=== PATIENT | male | born 1940 | race Caucasian/White ===

== ENCOUNTER 2019-02-15 16:20 | Emergency (ER) | payer MEDICARE ==
--- OUTSIDE RECORDS SUMMARY | 2019-02-15 17:35 | XMS REPORT | Continuity of Care Document ---
:1940 External Reference #:[id number] Author Name Amilcar Cruz MD Address [address] [place] [address] Care Team Providers Name Role Phone Marques Kendrick M.D. 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 Marc Pozo MD Primary Care Physician Unavailable Payers Date Identification Numbers Payment Provider Subscriber Policy Number: [id number] Medicare Remberto Miranda PayID: [id number] [address] [place] [address] Policy Number: [id number] Aar Supplemental Plan Remberto Miranda PayID: [id number] [address] [place] [address] Expires: 2018 Policy Number: [id number] Medicare Remberto Miranda PayID: [id number] [address] [place] [id number] Problems Active Problems Provider Date History of malignant neoplasm of kidney Amilcar Cruz MD Onset: 2018 Bladder muscle dysfunction - overactive Amilcar Cruz MD Onset: 2016 History of malignant neoplasm of prostate Amilcar Cruz MD Onset: 01/27 Increased frequency of urination Amilcar Cruz MD Onset: 07/26/2012 Impotence of organic origin Amilacr Cruz MD Onset: 07/26/2012 Malignant tumor of kidney Bishop Valles RPA Onset: 02/02/2012 Malignant tumor of prostate Bishop Valles RPA Onset: 02/02/2012 Family History Date Family Member(s) Observation Comments Father Prostate Cancer Social History Type Date Description Comments Sex Unknown Marital Status Patient is single Occupation Patient is retired Tobacco Use Reviewed: 01/24/19 Never Smoked Cigarettes Smoking Status Reviewed: 01/24/19 Never Smoked Cigarettes ETOH Use Patient denies alcohol use Allergies, Adverse Reactions, Alerts Description No Known Drug Allergies Medications Active Medications SIG Qnty Indications Ordering Date Provider Vesicare Take One Tablet 90tabs Torsten Lockwood, 10/16/2018 10mg Tablets By Mouth Every PA Day Meloxicam Unknown 15mg Tablets Chlorthalidone Marc Pozo MD 25mg Tablets Montelukast Sodium Henny De Jesus MD 10mg Tablets Bupropion Hydrochloride Henny De Jesus MD ER (XL) 300mg Tablets ER 24HR Vitamin D 1 by mouth Unknown 1000Unit Tablets every day Citalopram Hydrobromide Unknown 20mg Tablets Multi Vitamin prn Unknown Tablets Fluticasone Propionate Unknown 50mcg/Act Suspension Prilosec 1 PO qd 90caps Unknown 20mg Capsules Polyethylene Glycol Unknown Losartan Potassium Unknown 150mg Levothyroxine Sodium Unknown 25mcg Tablets Levocetirizine Unknown Dihydrochloride 5mg Tablets Aspirin 1 by mouth Unknown 81mg Tablets DR every day Rosuvastatin Calcium Unknown 5mg Tablets Mometasone Furoate Unknown 50mcg/Act Suspension Ranitidine HCL Unknown 150mg Capsules History Medications Vesicare 1 by mouth every 90tabs Amilcar Orta 07/05/2018 - 5mg Tablets day MD Anthony 10/16/2018 Vesicare Take One Tablet By 90tailan Orta 07/20/2015 - 10mg Tablets Mouth Every Day MD Anthony 07/05/2018 Levaquin 1 Tab Morning Of 2tabs Amilcar Orta 06/21/2007 - 500mg Tablets Procedure And 1 Tab MD Anthony 07/23/2007 Day After Procedure Cialis 1 Tab PO prn 1 Hour 10tabs Amilcar Orta 07/21/2006 - 20mg Tablets Prior To MD Anthony 01/24/2019 [place] Prevacid Doe Orta 06/14/2005 - 30mg/Packet Lyle Montanez 01/02/2006 Granules Aspirin Doe Orta 06/14/2005 - 300mg Suppositor Lyle Montanez 07/27/2016 Lexapro Doe Orta 06/14/2005 - 5mg Tablets Lyle Montanez 06/21/2007 Desipramine Doe Orta 06/14/2005 - 50mg Tablets Lyle Montanez 01/02/2006 Lipitor 1 po hs 0tabs Doe Orta 06/14/2005 - 20mg Tablets Lyle Montanez 01/02/2006 HCTZ 1 PO qd 30tabs Doe Orta 06/14/2005 - 25mg Tablets Lyle Montanez 12/09/2014 Avapro qd Doe Orta 06/14/2005 - 150mg Tablets Lyle Montanez 08/29/2013 Xanax one tab po tid january Doe Orta 06/14/2005 - 0.5mg Tablets also take 2 tabs at Lyle Montanez 01/02/2006 night if needed Oxybutynin one tab po in am as 60tabs Doe Orta 02/08/2005 - 5mg Tablets needed...one pill Lyle Montanez 07/23/2007 at noon as needed...two pills at night Augmentin 1 po bid 60tabs Doe Orta 01/14/2005 - 875mg Tablets Lyle Montanez 06/14/2005 Lortab one or two tabs po 30tabs Doe Orta 12/15/2004 - 7.5mg;500 mg q4-6 hours prn pain Lyle Montanez 06/21/2007 Tablets Ditropan XL 1 po qd 30tabs Doe Orta 12/15/2004 - 10mg Tablets Lyle Montanez 06/14/2005 Cialis 1 tab po prn 1 hour 10tabs Amilcar Orta 06/11/2004 - 10mg Tablets prior to MD Anthony 06/21/2007 intercourse Flonase Unknown - 50mcg/[place] 01/27/2016 Suspension Ultracet Unknown - Tablets 08/29/2013 Tramadol HCL Unknown - 50mg Tablets 07/27/2016 Naprosyn Unknown - 07/26/2017 Crestor Unknown - 07/27/2016 Miralax Unknown - 08/29/2013 Oxybutynin Unknown - 01/31/2013 Vesicare Unknown - 5mg 07/19/2015 Wellbutrin XL 1 po qd 90Tabs Unknown - 300mg 07/26/2017 Tablets ER 24HR Chlorthalidone Unknown - 25mg 07/26/2017 Tablets Nasacort Allergy 24HR Unknown - 01/25/2017 Amlodipine Besylate Unknown - 2.5mg 07/26/2017 Tablets Multivitamins 1 PO qd 30tabs Unknown - Tablets 01/25/2017 Senna-Gen Unknown - 01/31/2013 Tylenol W/ Codeine #3 1-2 Tabs PO Q4HR 30tabs Unknown - prn Pain 11/14/2008 300mg;30 mg Tablets Seroquel 1 PO qd Unknown - 50mg Tablets 11/14/2008 Lamictal 1 PO qid Unknown - 25mg Tablets 11/14/2008 Bupropion Sustained bid Unknown - Release 06/12/2009 150mg Tablets Depakote ER Unknown - 250mg Tablets 06/21/2007 Nifedipine Extended 60tabs Unknown - Release 06/21/2007 60mg Tablets Bisacodyl Unknown - 5mg Tablets 06/21/2007 Lovastatin qd Unknown - 20mg Tablets 12/30/2010 Mirtazapine Unknown - 15mg Tablets 06/21/2007 Naproxen Unknown - 250mg Tablets 06/21/2007 Vital Signs Date Vital Result Comment 01/24/2019 11:42am Height 63 inches 5'3" Weight 140.00 lb Weight 63.504 kg BMI (Body Mass Index) 24.8 kg/m2 BP Systolic 140 mmHg BP Diastolic 82 mmHg Heart Rate 73 /min 07/27/2017 12:35pm Height 64 inches 5'4" Weight 144.00 lb Weight 65.318 kg BMI (Body Mass Index) 24.7 kg/m2 BP Systolic 149 mmHg BP Diastolic 80 mmHg Heart Rate 68 /min 01/26/2017 11:30am Height 64 inches 5'4" Weight 140.00 lb Weight 63.504 kg BMI (Body Mass Index) 24.0 kg/m2 BP Systolic 132 mmHg BP Diastolic 84 mmHg Heart Rate 67 /min 07/28/2016 11:16am Height 64 inches 5'4" Weight 145.00 lb Weight 65.772 kg BMI (Body Mass Index) 24.9 kg/m2 BP Systolic 129 mmHg BP Diastolic 74 mmHg Heart Rate 79 /min 01/28/2016 10:34am Height 64 inches 5'4" Weight 149.00 lb Weight 67.586 kg BMI (Body Mass Index) 25.6 kg/m2 BP Systolic 146 mmHg BP Diastolic 81 mmHg Heart Rate 62 /min 12/09/2014 2:17pm Height 64.5 inches 5'4.50" Weight 143.00 lb Weight 64.865 kg BMI (Body Mass Index) 24.2 kg/m2 BP Systolic 125 mmHg BP Diastolic 72 mmHg Heart Rate 63 /min 11/21/2013 1:48pm Height 64.5 inches 5'4.50" Weight 341.69 lb Weight 155.000 kg BMI (Body Mass Index) 57.7 kg/m2 BP Systolic 138 mmHg BP Diastolic 56 mmHg Heart Rate 70 /min 01/31/2013 11:53am Height 64 inches 5'4" Weight 143.00 lb Weight 64.865 kg BMI (Body Mass Index) 24.5 kg/m2 BP Systolic 154 mmHg BP Diastolic 82 mmHg Heart Rate 64 /min 07/26/2012 12:03pm BP Systolic 130 mmHg BP Diastolic 88 mmHg Heart Rate 60 /min 02/02/2012 3:25pm Height 63.50 inches 5'3.50" Weight 140.00 lb Weight 63.504 kg BMI (Body Mass Index) 24.4 kg/m2 BP Systolic 134 mmHg BP Diastolic 76 mmHg Heart Rate 64 /min Results Test Date Facility Test Result H/L Range Note 230 Ua Routine 01/24/2019 [facility] Ua Glucose Negative REF TO DR ADDRESS ON ORDER FOR (315)- - Ua Protein Negative Ua Nitrite Negative Ua Leuko Negative Ua Blood Negative Ua Color Yellow Ua Ketones Negative Ua Clarity Clear Ua Specific [place] 1.010 1.003-1.030 Ua PH 7.0 5.0-7.5 Ua Bilirubin Negative Ua Urobilinogen 1.0 E.U./dL 0.0-1.0 Laboratory test 01/21/2019 [facility] Prostate 3.14 ng/mL < 4.0 1, [address] [place] [address] Antigen [phone] Laboratory test 08/20/2018 [facility] Prostate 3.14 ng/mL < 4.0 [address] [place] [address] Antigen [phone] Laboratory test 07/27/2017 [facility] Total Psa 2.56 ng/mL 0.00-4.[address] [place] [address] [phone] 230 Ua Routine 07/27/2017 [facility] Ua Glucose Negative REF TO DR ADDRESS ON ORDER FOR (315)- - Ua Protein Negative Ua Nitrite Negative Ua Leuko Negative Ua Blood Negative Ua Color Not Entered Ua Ketones Negative Ua Clarity Not Entered Ua Specific [place] 1.010 1.003-1.030 Ua PH 7.0 5.0-7.5 Ua Bilirubin Negative Ua Urobilinogen 0.2 E.U./dL 0.0-1.0 230 Ua Routine 01/26/2017 [facility] Ua Glucose Negative REF TO DR ADDRESS ON ORDER FOR (315)- - Ua Protein Negative Ua Nitrite Negative Ua Leuko Negative Ua Blood Negative Ua Color Not Entered Ua Ketones Negative Ua Clarity Not Entered Ua Specifici [place] 1.015 1.003-1.030 Ua PH 8.0 5.0-7.5 Ua Bilirubin Negative Ua Urobilinogen 0.2 E.U./dL 0.0-1.0 Laboratory test 01/26/2017 [facility] Total Psa 2.08 ng/mL 0.00-4.[address] [place] [address] [phone] 230 Ua Routine 07/28/2016 [facility] Ua Glucose Negative REF TO DR ADDRESS ON ORDER FOR (315)- - Ua Protein Negative Ua Nitrite Negative Ua Leuko Negative Ua Blood Negative Ua Color Not Entered Ua Ketones Negative Ua Clarity Not Entered Ua Specifici [place] 1.020 1.003-1.030 Ua PH 6.5 5.0-7.5 Ua Bilirubin Negative Ua Urobilinogen 0.2 E.U./dL 0.0-1.0 Laboratory test 06/30/2016 [facility] Total Psa 2.07 ng/mL 0.00-4.00 finding [address] [place] [address] [phone] 230 Ua Routine 01/28/2016 [facility] Ua Glucose Negative REF TO DR ADDRESS ON ORDER FOR (315)- - Ua Protein Negative Ua Nitrite Negative Ua Leuko Negative Ua Blood Negative Ua Color Not Entered Ua Ketones Negative Ua Clarity Not Entered Ua Specifici [place] 1.010 1.003-1.030 Ua PH 7.0 5.0-7.5 Ua Bilirubin Negative Ua Urobilinogen 0.2 E.U./dL 0.0-1.0 Laboratory test finding 01/25/2016 Outside Facility PSA Total 2.1 (315)- - 230 Ua Routine 06/25/2015 [facility] Ua Glucose Negative REF TO DR ADDRESS ON ORDER FOR (315)- - Ua Protein Negative Ua Nitrite Negative Ua Leuko Negative Ua Blood Negative Ua Color Not Entered Ua Ketones Negative Ua Clarity Not Entered Ua Specific [place] 1.015 1.003-1.030 Ua PH 7.5 5.0-7.5 Ua Bilirubin Negative Ua Urobilinogen 0.2 E.U./dL 0.0-1.0 Laboratory test 06/18/2015 [facility] PSA Total 2.19 finding [address] [place] [address] [phone] #Ua Routine 12/09/2014 [facility] Ua Glucose Negative REF TO DR ADDRESS ON ORDER FOR (315)- - Ua Protein Negative Ua Nitrite Negative Ua Leuko Negative Ua Blood Negative Ua Color Not Entered Ua Ketones Negative Ua Clarity Not Entered Ua Specific [place] 1.010 1.003-1.030 Ua PH 7.0 5.0-7.5 Ua Bilirubin Negative Ua Urobilinogen 0.2 E.U./dL 0.0-1.0 Laboratory test 12/09/2014 [facility] Total Psa 2.45 ng/mL 0.00-4.[address] [place] [address] [phone] #Ua Routine 03/27/2014 [facility] Ua Glucose Negative REF TO DR ADDRESS ON ORDER FOR (315)- - Ua Protein Negative Ua Nitrite Negative Ua Leuko Negative Ua Blood Negative Ua Color Not Entered Ua Ketones Negative Ua Clarity Not Entered Ua Specific [place] 1.025 1.003-1.030 Ua PH 6.5 5.0-7.5 Ua Bilirubin Negative Ua Urobilinogen 0.2 E.U./dL 0.0-1.0 Laboratory test 03/27/2014 [facility] Total Psa 1.23 ng/mL 0.00-4.[address] [place] [address] [phone] #Ua Routine 11/21/2013 [facility] Ua Glucose Negative REF TO DR ADDRESS ON ORDER FOR (315)- - Ua Protein Negative Ua Nitrite Negative Ua Leuko Negative Ua Blood Negative Ua Color Not Entered Ua Ketones Negative Ua Clarity Not Entered Ua Specific [place] 1.015 1.003-1.030 Ua PH 7.0 5.0-7.5 Ua Bilirubin Negative Ua Urobilinogen 0.2 E.U./dL 0.2-1 Laboratory test 11/21/2013 [facility] Total Psa 1.45 ng/mL 0.00-4.[address] [place] [address] [phone] #Ua Routine 08/29/2013 [facility] Ua Glucose Negative REF TO DR ADDRESS ON ORDER FOR (315)- - Ua Protein Negative Ua Nitrite Negative Ua Leuko Negative Ua Blood Negative Ua Color Not Entered Ua Ketones Negative Ua Clarity Not Entered Ua Specific [place] 1.015 1.003-1.030 Ua PH 6.5 5.0-7.5 Ua Bilirubin Negative Ua Urobilinogen 0.2 E.U./dL 0.2-1 Laboratory test 08/29/2013 [facility] Total PSA 1.56 ng/mL 0.00-4.[address] [place] [address] [place] [address] [phone] #Ua Routine 01/31/2013 [facility] Ua Glucose Negative REF TO DR ADDRESS ON ORDER FOR (998)- - Ua Protein Negative Ua Nitrite Negative Ua Leuko Negative Ua Blood Negative Ua Color Not Entered Ua Ketones Negative Ua Clarity Not Entered Ua Specific [place] 1.010 Ua PH 6.5 Ua Bilirubin Negative Ua Urobilinogen 0.2 E.U./dL Laboratory test 01/31/2013 [facility] Total PSA 0.81 ng/mL 0.00-4.[address] [place] [address] [phone] #Ua Routine 07/26/2012 [facility] Ua Glucose Negative REF TO DR ADDRESS ON ORDER FOR (445)- - Ua Protein Negative Ua Nitrite Negative Ua Leuko Negative Ua Blood Negative Ua Color Not Entered Ua Ketones Negative Ua Clarity Not Entered Ua Specific [place] 1.010 Ua PH 7.5 Ua Bilirubin Negative Ua Urobilinogen 0.2 E.U./dL Laboratory test 07/26/2012 [facility] Total PSA 0.97 ng/mL 0.00-4.[address] [place] [address] [phone] #Ua Routine 02/02/2012 [facility] Ua Glucose Negative REF TO DR ADDRESS ON ORDER FOR (038)- - Ua Protein Negative Ua Nitrite Negative Ua Leuko Negative Ua Blood Negative Ua Color Not Entered Ua Ketones Trace * Ua Clarity Not Entered Ua Specific [place] 1.015 Ua PH 7.0 Ua Bilirubin Negative Ua Urobilinogen 0.2 E.U./dL Laboratory test 02/02/2012 [facility] Total PSA 0.746 ng/mL 0.000-4.[address] [place] [address] [phone] #Ua Routine 07/11/2011 [facility] Ua Glucose Negative REF TO DR ADDRESS ON ORDER FOR (503)- - Ua Protein Negative Ua Nitrite Negative Ua Leuko Negative Ua Blood Negative Ua Color Not Entered Ua Ketones Negative Ua Clarity Not Entered Ua Specific [place] 1.015 Ua PH 7.5 Ua Bilirubin Negative Ua Urobilinogen 0.2 E.U./dL Laboratory test 07/11/2011 [facility] Total PSA 0.88 ng/mL 0.00-4.[address] [place] [address] 0[address]147 [phone] #Ua Routine 12/30/2010 [facility] Ua Glucose Negative REF TO DR ADDRESS ON ORDER FOR (315)- - Ua Prot/Creat Normal Ua Protein Negative Ua Nitrite Negative Ua Leuko Negative Ua Blood Negative Ua Color Not Entered Ua Ketones Negative Ua Clarity Not Entered Ua Specific [place] 1.010 Ua PH 7.0 Ua Creatinine 50 mg/dL Laboratory test 11/30/2010 [facility] Total PSA 0.98 ng/mL 0.00-4.00 finding [address] [place] [address] [phone] #Ua Routine 04/26/2010 [facility] Ua Specific 1.[address] ADDRESS ON ORDER FOR [place] (315)- - Ua PH 7.0 Ua Protein Negative Ua Nitrite Negative Ua Leuko Negative Ua Blood Negative Ua Glucose Negative Ua Color Not Entered Ua Ketones Negative Ua Bilirubin Negative Ua Urobilinogen 0.2 E.U./dL Ua Clarity Not Entered Laboratory test 04/26/2010 [facility] PSA Total 0.62 0.04-4.[address] ADDRESS ON ORDER FOR (315)- - #Ua Routine 12/11/2009 [facility] Ua Specific 1.[address] ADDRESS ON ORDER FOR [place] (315)- - Ua PH 6.0 Ua Color Not Entered Ua Protein Negative Ua Glucose Negative Ua Ketones Negative Ua Bilirubin Negative Ua Urobilinogen 0.2 E.U./dL Ua Nitrite Negative Ua Leuko Negative Ua Blood Small * Laboratory test 12/11/2009 [facility] PSA Total 0.[address] ADDRESS ON ORDER FOR (315)- - Laboratory test 05/30/2009 [facility] PSA Total 0.4 finding [address] [place], [place] [address] [phone] Laboratory test 11/14/2008 [facility] PSA Total 0.[address] ADDRESS ON ORDER FOR (315)- - Laboratory test 06/07/2008 [facility] PSA Total 0.3 finding [address] [place], [place] [address] [phone] Laboratory test 11/16/2007 PSA Total 0.27 finding PSA Total 06/21/2007 [facility] [place] [facility] [place] PSA,Total @ 0.3 NG/ML (0.0-4.0) [address] [place] [address] [phone] Laboratory test 05/27/2006 [facility] PSA Total 0.1 finding [address] [place] [address] [phone] Creatinine 01/02/2006 [facility] [place] [facility] Creatinine 1.1 mg/dL (0.8- 1.3) 5 [place] [address] [phone] GFR 72 ML/MIN/1.7 (>59) GFR ( Amer) 87 ML/MIN/1.7 (>59) GFR Interpretation <SEE NOTE> 6 Laboratory test 01/02/2006 [facility] [place] Urea Nitrogen 20 mg/dL (7-24) finding [place] [address] [phone] Laboratory test 12/08/2005 PSA Total 0.1 finding Urea Nitrogen 06/09/2005 Urea Nitrogen 15 mg/dL (7-24) 7 Creatinine 06/09/2005 Creatinine 0.9 mg/dL (0.8-1.3) GFR >90 ML/MIN/1.7 (>59) GFR ( Amer) >90 ML/MIN/1.7 (>59) GFR Interpretation <SEE NOTE> 8 Laboratory test finding 04/12/2005 PSA Total <0.04 CBC Without Diff 01/28/2005 WBC 9.0 K/UL (4.1-11.0) RBC 4.51 M/UL Low (4.60-6.10) HGB 13.1 GM/DL Low (13.5-18.0) HCT 39.1 % Low (41.0-53.0) MCV 86.6 FL (80.0-95.0) MCH 29.0 pg (27.0-32.0) MCHC 33.5 g/dL (32.0-36.0) RDW 13.8 % (10.5-14.5) PLT 607 K/UL High (150-400) MPV 7.3 FL (7.1-10.7) Basic Metabolic Panel 01/28/2005 Sodium 139 mmol/L (136-145) Potassium 4.3 mmol/L (3.6-5.2) Chloride 99 mmol/L Low (100-108) Co2 28 mmol/L (22-31) Anion Gap 12 mmol/L (7-16) Urea Nitrogen 13 mg/dL (7-24) BUN/Creat Ratio 18.6 RATIO (10.0-20.0) Glucose 105 mg/dL (70-110) Calcium 9.3 mg/dL (8.4-10.2) GFR >90 ML/MIN/1.7 (>59) GFR ( Amer) >90 ML/MIN/1.7 (>59) GFR Interpretation <SEE NOTE> 9 Laboratory test finding 01/28/2005 Esr 34 MM/HR High (0-20) Urine Culture SPECIMEN DESCRIP <SEE NOTE> 10 CBC Without Diff 12/24/2004 WBC 7.4 K/UL (4.1-11.0) RBC 4.35 M/UL Low (4.60-6.10) HGB 13.2 GM/DL Low (13.5-18.0) HCT 38.5 % Low (41.0-53.0) MCV 88.5 FL (80.0-95.0) MCH 30.3 pg (27.0-32.0) MCHC 34.3 g/dL (32.0-36.0) RDW 13.1 % (10.5-14.5) PLT 802 K/UL High (150-400) MPV 6.9 FL Low (7.1-10.7) Basic Metabolic Panel 12/15/2004 Sodium 132 mmol/L Low (136-145) Potassium 4.3 mmol/L (3.6-5.2) Chloride 95 mmol/L Low (100-108) Co2 23 mmol/L (22-31) Anion Gap 14 mmol/L (7-16) Urea Nitrogen 26 mg/dL High (7-24) BUN/Creat Ratio 23.6 RATIO High (10.0-20.0) Glucose 131 mg/dL High (70-110) Calcium 9.8 mg/dL (8.4-10.2) GFR 72 ML/MIN/1.7 (>59) GFR ( Amer) 87 ML/MIN/1.7 (>59) GFR Interpretation <S 11 Laboratory test finding 12/15/2004 PSA Total <0.04 Laboratory test finding 05/03/2004 PSA Total <0.04 Laboratory test finding 11/07/2003 PSA Total 7.1 Laboratory test finding 07/04/2003 [facility] PSA Total 5.9 [address] [place] [address] [phone] 1 Z85.46 2 THIS ASSAY IS NOT INTENDED A CANCER SCREENING TEST The concentration of PSA in a given specimen, determined with assays from different manufacturers, can vary due to differences in assay methods and reagent specificity. Values obtained from different assay methods cannot be used interchangeably. Method: Siemens Dimension [place] Chemiluminescent immunoassay. 3 THIS ASSAY IS NOT INTENDED A CANCER SCREENING TEST The concentration of PSA in a given specimen, determined with assays from different manufacturers, can vary due to differences in assay methods and reagent specificity. Values obtained from different assay methods cannot be used interchangeably. Method: Siemens Dimension [place] Chemiluminescent immunoassay. 4 IN 20% OF CASES W/ BHP, PSA MAY BE 10 MG/DL OR MORE. SERUM PSA CONCENTRATION SHOULD NOT BE INTERPRETED ABSOLUTE EVIDENCE FOR THE PRESENCE OR ABSENCE OF MALIGNANT DISEASE. METHOD IS [employer] ACCESS/DXI EQUIMOLAR ASSAY. VALUES OBTAINED WITH DIFFERENT ASSAY METHODS OR KITS CANNOT BE USED INTERCHANGEABLY. 5 RESULTS AUTOFAXED D6015 @ 2723 BY [employer] [id number] 6 NORMAL KIDNEY FUNCTION OR MILD DISEASE - GFR >OR=60 CHRONIC KIDNEY DISEASE - GFR 15 - 59 RENAL FAILURE - GFR <15 Est. GFR calculation based on the MDRD study equation, which assumes a steady state for creatinine. Est. GFR should not be used for medication dosing. 7 PERFORMED AT [facility] [address] 8 NORMAL KIDNEY FUNCTION OR MILD DISEASE - GFR >OR=60 CHRONIC KIDNEY DISEASE - GFR 15 - 59 RENAL FAILURE - GFR <15 Est. GFR calculation based on the MDRD study equation, which assumes a steady state for creatinine. Est. GFR should not be used for medication dosing. 9 NORMAL KIDNEY FUNCTION OR MILD DISEASE - GFR >OR=60 CHRONIC KIDNEY DISEASE - GFR 15 - 59 RENAL FAILURE - GFR <15 Est. GFR calculation based on the MDRD study equation, which assumes a steady state for creatinine. Est. GFR should not be used for medication dosing. 10 SPECIMEN DESCRIPTION URINE, COLLECTION METHOD NOT SPECIFIED CULTURE RESULTS NO GROWTH REPORT STATUS FINAL [id number] 11 NORMAL KIDNEY FUNCTION OR MILD DISEASE - GFR >OR=60 CHRONIC KIDNEY DISEASE - GFR 15 - 59 RENAL FAILURE - GFR <15 Est. GFR calculation based on the MDRD study equation, which assumes a steady state for creatinine. Est. GFR should not be used for medication dosing. Procedures Date Code Description Status 07/27/2017 [id number] Colonoscopy Completed 07/27/2017 34647 Ultrasound Retro Renal Real Time With Image Limited Completed Tech 01/31/[address] Abdomen/Pelvis Wo Contrast Completed 07/11/[address] Abdomen/Pelvis Wo Contrast Completed 11/14/[address] Abdomen Wo/W Contrast Completed 11/14/[address] Pelvis Wo/W Contrast Completed 07/23/2007 91697 Biopsy, Prostate, Needle Or Punch, Single Or Multiple, Completed Any Approa 07/23/2007 04459 Ultrasonic Guidance For Needle Completed Placement(Biopsy);Supervis & Inter 07/23/2007 29352 Ultrasound,Prostate-Ultrasound Completed 09/02/2005 19031 Cystourethroscopy, Office Completed 08/30/2005 56672 Voiding Pressure Studies- Office- Global Completed 08/30/2005 52223 Urodynamics, Complex Cystometrogram Ie Calibrated Completed Office Global 08/30/2005 99156 Urodynamics, Voiding Pressure Studies Intra Abdominal Completed Global 08/30/2005 76625 Urodynamics, Complex Uroflowmetry Eg Calibrated Completed Electronic Office 02/03/2005 21551 Postoperative Visit Completed 01/28/2005 85054 Postoperative Visit Completed 01/14/2005 83939 Postoperative Visit Completed 12/03/2004 48438 Ultrasound Visceral Tissue Ablation Completed 12/03/2004 81783 Laparoscopy, Partial Nephrectomy Completed 12/03/2004 98411 Laparoscopy, Partial Nephrectomy Asst Surg Completed 06/11/2004 19601 Postoperative Visit Completed 04/13/2004 64050 Postoperative Visit Completed 04/06/2004 44555 Postoperative Visit Completed 03/30/2004 58480 Radical Retropubic Prostatectomy With BPLND Completed 03/30/2004 94719 Ast.Surg,Radical Retropubic Prostatectomy W/BPLND Completed 12/08/2003 35273 Ultrasonic Guidance For Needle Completed Placement(Biopsy);Supervis & Inter 12/08/2003 64078 Ultrasound,Prostate-Ultrasound Completed 12/08/2003 56091 Biopsy, Prostate, Needle Or Punch, Single Or Multiple, Completed Any Approa Encounters Type Date Location Provider Dx Diagnosis Office Visit 01/24/2019 [facility]/ Amilcar Orta Z85.46 Personal history 11:30a [facility] MD Anthony of malignant neoplasm of prostate Z85.528 Personal history of other malignant neoplasm of kidney N32.81 Overactive bladder N52.9 Male erectile dysfunction, unspecified Office Visit 07/27/2017 12:15p Nestor Orta Z85.46 Personal history Erik/ Prema Cruz MD of malignant Urology neoplasm of prostate N32.81 Overactive bladder C64.1 Malignant neoplasm of right kidney, except renal pelvis N52.9 Male erectile dysfunction, unspecified Office Visit 01/26/2017 11:50a Nestor Orta C61 Malignant Erik/ Prema Cruz MD neoplasm of Urology prostate N32.81 Overactive bladder N52.8 Other male erectile dysfunction C64.1 Malignant neoplasm of right kidney, except renal pelvis Office Visit 07/28/2016 11:00a Nestor Orta Z85.46 Personal history Erik/ Prema Cruz MD of malignant Urology neoplasm of prostate C64.1 Malignant neoplasm of right kidney, except renal pelvis R35.0 Frequency of micturition N52.8 Other male erectile dysfunction Office Visit 01/28/2016 10:20a Nestor Orta Z85.46 Personal history Erik/ Prema Cruz MD of malignant Urology neoplasm of prostate R35.0 Frequency of micturition N52.8 Other male erectile dysfunction C64.1 Malignant neoplasm of right kidney, except renal pelvis Office Visit 06/25/2015 11:10a Nestor Orta C61 Malignant Erik/ Prema Cruz MD neoplasm of Urology prostate R35.0 Frequency of micturition N52.8 Other male erectile dysfunction C64.9 Malignant neoplasm of unsp kidney, except renal pelvis Office Visit 12/09/2014 3:20p Nestor Orta 185 Sheree Valencia/ Prema Cruz MD Neoplasm Prostate Urology 607.84 Impotence Organic Origin 788.41 Urinary Frequency 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 v76.44 Screening For Malig Elbert Prostate Office Visit 03/27/2014 1:50p Nestor Orta 185 Sheree Valencia/ Prema Cruz MD Neoplasm Prostate 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 788.41 Urinary Frequency Office Visit 11/21/2013 1:30p Nestor Orta 185 Sheree Valencia/ Prema Cruz MD Neoplasm Prostate Urology 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 788.41 Urinary Frequency Office Visit 08/29/2013 11:40a Nestor Orta 189.0 Malignant Erik/ Prema Cruz MD Neoplasm Kidney Urology Except Pelvis 185 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 788.41 Urinary Frequency Office Visit 01/31/2013 11:10a Nestor Orta [address]/ Kamron.M.Canelo Cruz MD Neoplasm Prostate Urology 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 788.41 Urinary Frequency Office Visit 07/26/2012 12:20p Nestor Orta [address]/ A.M.Canelo Cruz MD Neoplasm Prostate Urology 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 788.41 Urinary Frequency Office Visit 02/02/2012 2:30p [facility] Arely Valles [address]/ A.M.PLibia RPA Neoplasm Prostate Urology 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 Office Visit 07/11/2011 10:20a Nestor Orta [address]93.[address]/ A.M.Canelo Cruz MD Acquired Urology 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 185 Malignant Neoplasm Prostate 592.0 Calculus Of Kidney 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 Office Visit 12/30/2010 3:30p Nestor Orta 185 Malignant [place]/ Kamron.M.Canelo Cruz MD Neoplasm Prostate Urology 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 Office Visit 04/26/2010 1:40p Nestor Orta 185 Malignant Erik/ Kamron.M.Canelo Cruz MD Neoplasm Prostate Urology 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 Office Visit 12/11/2009 2:00p Nestor Orta V10.46 History Personal Erik/ Kam[place].M.Canelo Cruz MD Malignant Urology Neoplasm Prostate 607.84 Impotence Organic Origin Office Visit 06/12/2009 12:15p Nestor Orta 185 Malignant Erik/ Kamron.MDawna Cruz MD Neoplasm Prostate Urology 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 Office Visit 11/14/2008 12:00p Nestor Orta 189.0 Malignant Erik/ Kamron.M.Canelo Cruz MD Neoplasm Kidney Urology Except Pelvis 189.0-2 CA Kidney;Primary;Malignant 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 Office Visit 01/02/2006 10:50a Nestor Nicholson Malignant Erik/ Kamron.MDawna Cruz MD Neoplasm Prostate Urology 593.9-1 Kidney/Ureter Disorders Unspec Acute Renal Disease Office Visit 08/30/2005 2:10p [facility] Arely Arizmendi [address]/ A.M.Canelo Joseph P.ALiiba Bladder Neck Urology 185 Malignant Neoplasm Prostate Office Visit 08/15/2005 4:15p Nestor Nicholson Malignant Erik/ Kamron.M.Canelo Cruz MD Neoplasm Prostate Urology 788.4-1 Nocturia Office Visit 06/14/2005 10:10a Nestor [facility] Doe Nicholson [address]/ [place].M.Canelo Montanez M.D. Neoplasm Urology Prostate 189.0-2 CA Kidney;Primary;Malignant Office Visit 04/12/2005 10:00a Nestor [facility] Doe Nicholson [address]/ [place].MDawna Montanez M.D. Neoplasm Urology Prostate 189.0-2 CA Kidney;Primary;Malignant Office Visit 12/15/2004 1:50p Nestor [facility] Doe Nicholson [address]/ [place].M.Canelo Montanez M.D. Neoplasm Urology Prostate 593.9-1 Kidney/Ureter Disorders Unspec Acute Renal Disease Office 11/29/2004 Adrienne Orta 593.9-1 Kidney/Ureter Visit 12:15p / Lyle Montanez Disorders Unspec A.M.P. Urology Acute Renal Disease Office 09/09/2004 [facility] Spencer Malignant Neoplasm Visit 4:30p General/ Prostate A.M.P. 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
[2019-02-15 17:42] VITALS: BP 122/68
--- NOTE | 2019-02-15 18:16 | ED ---
Throat Pain/Nasal Congestion - HPI Summary HPI Summary: pt presents for evaluation of left ear pain. he states that he has intermittently chronic tinnitus to the left ear. he denies any trauma. he does state that he has had increased congestion. he uses flonase. - History of Current Complaint Chief Complaint: UCEar Hx Obtained From: Patient Onset/Duration: Gradual Onset Severity: Mild - Allergies/Home Medications Allergies/Adverse Reactions: Allergies Allergy/AdvReac Type Severity Reaction Status Date / Time No Known Allergies Allergy Verified 02/15/19 17:37 Home Medications: Home Medications BuPROPion XL* [Bupropion XL*] 1 tab QAM 02/15/19 [History Confirmed 02/15/19] Chlorthalidone TAB* [Hygroton TAB*] 0.5 tab PO DAILY 02/15/19 [History Confirmed 02/15/19] Citalopram TAB* [CeleXA TAB*] 10 mg PO DAILY 02/15/19 [History Confirmed ] Fluticasone NASAL SPRAY 50MCG* [Flonase NASAL SPRAY 50MCG*] 1 spray DAILY [History Confirmed 02/15/19] LevoCETirizine TAB (NF) [Xyzal TAB (NF)] 5 mg PO DAILY 02/15/19 [History Confirmed 02/15/19] Levothyroxine TAB* [Synthroid TAB*] 50 mcg PO DAILY 02/15/19 [History Confirmed 02/15/19] Losartan Potassium 100 mg PO DAILY 02/15/19 [History Confirmed 02/15/19] Montelukast Sodium TAB* [Singulair TAB*] 10 mg PO BEDTIME 02/15/19 [History Confirmed 02/15/19] Omeprazole 40 mg PO DAILY 02/15/19 [History Confirmed 02/15/19] Ranitidine TAB (NF) [Zantac TAB (NF)] 150 mg PO QPM 02/15/19 [History Confirmed 02/15/19] Rosuvastatin Calcium 5 mg PO DAILY 02/15/19 [History Confirmed 02/15/19] Solifenacin Succinate [Vesicare] 10 mg PO DAILY 02/15/19 [History Confirmed 03/29] amLODIPine TAB* [Norvasc 5 mg TAB*] 2.5 mg DAILY 02/15/19 [History Confirmed 03/29] PMH/Surg Hx/FS Hx/Imm Hx Previously Healthy: Yes Endocrine/Hematology History: Reports: Hx Thyroid Disease Cardiovascular History: Reports: Hx Hypertension Denies: Hx Pacemaker/ICD Psychiatric History: Denies: Hx Panic Disorder - Cancer History Cancer Type, Location and Year: KIDNEY [place] - Surgical History Surgery Procedure, Year, and Place: LUMBAR SURGERIES MULTIPLE 6605-2778, PARTIAL NEPHRECTOMY 2003, PROSTATE 2003 Infectious Disease History: No Infectious Disease History: Denies: Traveled Outside the [place] in Last 30 Days - Social History Alcohol Use: None Substance Use Type: Reports: None Smoking Status (MU): Never Smoked Tobacco Review of Systems Constitutional: Negative Eyes: Negative Positive: Ear Ache, Other - ringing of ears Cardiovascular: Negative Respiratory: Negative Gastrointestinal: Negative Genitourinary: Negative Musculoskeletal: Negative Skin: Negative Neurological: Negative Psychological: Normal All Other Systems Reviewed And Are Negative: No Physical Exam Triage Information Reviewed: Yes Vital Signs On Initial Exam: Initial Vitals Temp Pulse Resp BP Pulse Ox 97.4 F 57 16 122/68 98 02/15/19 17:38 02/15/19 17:38 02/15/19 17:38 02/15/19 17:38 02/15/19 17:38 Vital Signs Reviewed: Yes Appearance: Positive: Well-Appearing, No Pain Distress, Well-Nourished Skin: Positive: Warm, Dry Eyes: Positive: Normal, EOMI, ANJELICA ENT: Positive: Normal ENT inspection, Hearing grossly normal Neck: Positive: Supple, Nontender Respiratory/Lung Sounds: Positive: Clear to Auscultation, Breath Sounds Present Cardiovascular: Positive: Normal, RRR Abdomen Description: Positive: Nontender, Soft Bowel Sounds: Positive: Present Musculoskeletal: Positive: Normal, Strength/ROM Intact Neurological: Positive: Normal, Sensory/Motor Intact, Alert, Oriented to Person Place, Time, CN Intact II-III Psychiatric: Positive: Normal AVPU Assessment: Alert Diagnostics - Vital Signs Vital Signs Temp Pulse Resp BP Pulse Ox 02/15/19 17:38 97.4 F 57 16 122/68 98 - Laboratory Lab Statement: Any lab studies that have been ordered have been reviewed, and results considered in the medical decision making process. EENT Course/Dx - Course Course Of Treatment: pt presents for evaluation of his left earache. he has chronic tinnitus. today no evidence of infection. I discussed with him the importance of f/u with pcp and to get a referral to ENT for his chronic intermittent tinnitus. - Diagnoses Provider Diagnoses: Earache on left Discharge - Sign-Out/Discharge Documenting (check all that apply): Patient Departure All imaging exams completed and their final reports reviewed: No Studies - Discharge Plan Condition: Stable Disposition: HOME Patient Education Materials: Earache (ED) Referrals: Anthony VELASCO,Amilcar Orta [Primary Care Provider] - Additional Instructions: Please follow up with your primary care physician. discuss the need for referral to ENT for your chronic ringing in your ears. return if worse or any new symptoms. - Billing Disposition and Condition Condition: STABLE Disposition: Home
== END 2019-02-15 18:20 | disposition home or self-care (01) ==
LOC: UCCORT 16:20
DX: H92.02 Otalgia, left ear (principal); I10 Essential (primary) hypertension; E07.9 Disorder of thyroid, unspecified; Z79.899 Other long term (current) drug therapy
CPT/HCPCS: 99202; G0463

== ENCOUNTER 2019-04-08 11:04 | Emergency (ER) | payer MEDICARE ==
[2019-04-08 11:25] VITALS: BP 127/67
--- NOTE | 2019-04-08 11:35 | UC ---
General HPI - HPI Summary HPI Summary: per triage, C/o cutting L ring finger while moving a cabinet out of a van about 1 hour ago. States finger got caught between cabinet and van. no limited rom. tetanus is utd, < 5 years ago. - History of Current Complaint Chief Complaint: UCLaceration Stated Complaint: LAC LEFT HAND Time Seen by Provider: 04/08/19 11:21 Hx Obtained From: Patient Onset/Duration: Sudden Onset Timing: Constant Pain Intensity: 7 Associated Signs & Symptoms: Negative: Weakness - Allergy/Home Medications Allergies/Adverse Reactions: Allergies Allergy/AdvReac Type Severity Reaction Status Date / Time No Known Allergies Allergy Verified 04/08/19 11:17 PMH/Surg Hx/FS Hx/Imm Hx Endocrine History: Thyroid Disease, Dyslipidemia Cardiovascular History: Hypertension GI/ History: Gastroesophageal Reflux Psychological History: Depression - Surgical History Surgical History: Yes Surgery Procedure, Year, and Place: LUMBAR SURGERIES MULTIPLE [id number], PARTIAL NEPHRECTOMY 2003, PROSTATE 2002 - Family History Known Family History: Positive: Non-Contributory - Social History Alcohol Use: None Substance Use Type: None Smoking Status (MU): Never Smoked Tobacco - Immunization History Most Recent Tetanus Shot: 2 years ago Review of Systems All Other Systems Reviewed And Are Negative: No Skin: Positive: Other - Cut L 4th finger Musculoskeletal: Negative: Decreased ROM Neurological: Negative: Weakness, Paresthesia, Numbness Physical Exam Triage Information Reviewed: Yes Appearance: Well-Appearing Vital Signs: Initial Vital Signs Temp 98.4 F 04/08/19 11:19 Pulse 55 04/08/19 11:19 Resp 16 04/08/19 11:19 BP 127/67 04/08/19 11:19 Pulse Ox 98 04/08/19 11:19 Vital Signs Reviewed: Yes Musculoskeletal: Positive: Other: - L 4th finger with a 23mm flap laceration on dorsal surface with scant bleeding. Edges of flap are very thin and center reveals fat. Finger is tender to palpation. gross s/v/m is intact. rest of hand is unremarkable. Neurological: Positive: Alert Psychological: Positive: Age Appropriate Behavior Skin Exam: Normal Diagnostics - Radiology No standard instances Radiology Interpretation Completed By: Radiologist - IMPRESSION: NO ACUTE OSSEOUS INJURY. IF SYMPTOMS PERSIST, RECOMMEND REPEAT IMAGING. Course/Dx - Course Course Of Treatment: PROCEDURE: WOUND IRRIGATED UNDER PRESSURE WITH STERILE NACL 400ML BY NURSING. THIS PROVIDER PATTED DRY WITH STERILE GAUZE AND FLAP PLACED ANATOMIC POSITION. FLAP SECURED WITH STERI STRIPS AFTER SITE PREP WITH MASTISOL. PT TOLERATED WELL. post xray, non adhering dressing applied then finger placed in frog splint with s/v intact - Diagnoses Provider Diagnosis: Avulsion, skin Discharge - Sign-Out/Discharge Documenting (check all that apply): Patient Departure All imaging exams completed and their final reports reviewed: Yes - Discharge Plan Condition: Stable Disposition: HOME Patient Education Materials: Skin Avulsion (ED), Steristrips (ED) Referrals: Marc Pozo MD [Primary Care Provider] - 5 Days Additional Instructions: SPLINT TO AVOID SPLITTING OPEN WOUND - Billing Disposition and Condition Condition: STABLE Disposition: Home
== END 2019-04-08 12:13 | disposition home or self-care (01) ==
LOC: UCCORT 11:04
DX: S61.215A Laceration without foreign body of left ring finger without damage to nail, initial encounter (principal); W26.8XXA Contact with other sharp object(s), not elsewhere classified, initial encounter; Y93.89 Activity, other specified; Y92.9 Unspecified place or not applicable; I10 Essential (primary) hypertension
CPT/HCPCS: 73140; 99213; G0463

== ENCOUNTER 2019-04-29 13:58 | Emergency (ER) | payer MEDICARE ==
[2019-04-29 14:35] VITALS: BP 129/85
[2019-04-29] MEDS ORDERED: Famotidine TAB* 20 MG PO ONE (14:41)
[2019-04-29] MEDS ORDERED: predniSONE TAB* 20 MG PO ONE (14:41)
[2019-04-29] MEDS ORDERED: diPHENhydraMINE PO* 50 MG PO ONE (14:41)
--- NOTE | 2019-04-29 14:48 | UC ---
Bite Injury/Animal HPI - HPI Summary HPI Summary: 78-year-old male comes in with a chief complaint of a wasp sting to the right lower lip. Good about an hour ago it's been swelling ever since. No shortness of breath no difficulty breathing or swallowing. No prior history of generalized allergic reactions to bee or wasp stings. Patient also fell yesterday and injured his left shoulder. The pain is in the left shoulder joint. He is decreased range of motion in the left shoulder since the fall yesterday. No weakness or numbness. No clinic any other injury. - History of Current Complaint Chief Complaint: UCGeneralIllness Stated Complaint: BEE STING IN MOUTH Time Seen by Provider: 04/29/19 14:29 Pain Intensity: 8 - Allergies/Home Medications Allergies/Adverse Reactions: Allergies Allergy/AdvReac Type Severity Reaction Status Date / Time No Known Allergies Allergy Verified 04/29/19 14:32 PMH/Surg Hx/FS Hx/Imm Hx Previously Healthy: Yes Endocrine History: Hypothyroidism Cardiovascular History: Hypertension GI/ History: Gastroesophageal Reflux - Surgical History Surgical History: Yes Surgery Procedure, Year, and Place: LUMBAR SURGERIES MULTIPLE [id number], PARTIAL NEPHRECTOMY 2003, PROSTATE 2002 - Family History Known Family History: Positive: Non-Contributory - Social History Alcohol Use: None Substance Use Type: None Smoking Status (MU): Never Smoked Tobacco - Immunization History Most Recent Tetanus Shot: 2 years ago Review of Systems All Other Systems Reviewed And Are Negative: Yes Constitutional: Positive: Negative Skin: Positive: Other - SEE HPI Eyes: Positive: Negative ENT: Positive: Other - SEE HPI Respiratory: Positive: Negative Cardiovascular: Positive: Negative Gastrointestinal: Positive: Negative Motor: Positive: Decreased ROM Neurovascular: Positive: Negative Musculoskeletal: Positive: Other: - SEE HPI Neurological: Positive: Negative Psychological: Positive: Negative Is Patient Immunocompromised?: No Physical Exam Triage Information Reviewed: Yes Appearance: Well-Appearing, No Pain Distress, Well-Nourished Vital Signs: Initial Vital Signs Temp 97.8 F 04/29/19 14:30 Pulse 53 04/29/19 14:30 Resp 18 04/29/19 14:30 BP 129/85 04/29/19 14:30 Pulse Ox 99 04/29/19 14:30 Vital Signs Reviewed: Yes Eye Exam: Normal Eyes: Positive: Conjunctiva Clear ENT: Positive: Pharynx normal, Other - Right lower lip is swollen. Oropharynx is open voice is normal. Tongue is normal.. Negative: Muffled voice, Hoarse voice Neck: Positive: Supple Respiratory: Positive: Lungs clear, Normal breath sounds, No respiratory distress Cardiovascular: Positive: RRR Musculoskeletal: Positive: Other: - Patient is tender to palpation in the left shoulder joint. Normal radial pulses normal sensation and capillary refill in both arms fingers wrist elbows have full range of motion and full strength. Left shoulder is decreased range of motion with inability to extend or abduct above 60. Neurological: Positive: Alert Psychological: Positive: Age Appropriate Behavior Skin: Positive: Other - Right lower lip is swollen Bite Injury Course/Dx - Course Course Of Treatment: Patient Name: ONEIL WONG Medical Record#: [id number] Ordering Physician: Tommy Davis MD Acct.#: [id number] : 1940 Age: 78 Sex: M Location: [facility] Exam Date: 04/29/19 1453 ADM Status: REG ER Order Information: SHOULDER LEFT 2+ VWS Accession Number: [id number] CPT: 32038 INDICATION: Left shoulder injury. TECHNIQUE: 4 views of the left shoulder were obtained. FINDINGS: The soft tissues are unremarkable. The bones are mildly osteopenic. No fracture is identified. Anatomic alignment is maintained. There is mild glenohumeral and acromioclavicular osteoarthropathy. The imaged left hemithorax is clear. IMPRESSION: MILD ACROMIOCLAVICULAR AND GLENOHUMERAL OSTEOARTHROPATHY. <Electronically signed by Song Aguilar MD in OV> 04/29/19 1510 In clinic patient received Benadryl 50 mg by mouth Pepcid 40 mg by mouth and prednisone 60 mg by mouth. Patient feels like his lip is gotten smaller in the clinic. No difficulty swallowing or difficulty breathing. I discussed the shoulder x-ray with the patient. We discussed range of motion exercises for the shoulder and the plan is to follow-up with sports medicine or orthopedics. - Differential Dx/Diagnosis Provider Diagnosis: Bee sting, Left shoulder pain Discharge - Sign-Out/Discharge Documenting (check all that apply): Patient Departure All imaging exams completed and their final reports reviewed: Yes - Discharge Plan Condition: Stable Disposition: HOME Patient Education Materials: Shoulder Pain (ED) Referrals: Marc Pozo MD [Primary Care Provider] - Rom Jay MD [Medical Doctor] - [facility] [Provider Group] Additional Instructions: FOLLOW UP WITH SPORTS MEDICINE OR ORTHOPEDICS. GET REEVALUATED SOONER IF WORSE OR ANY QUESTIONS OR CONCERNS. - Billing Disposition and Condition Condition: STABLE Disposition: Home
== END 2019-04-29 15:52 | disposition home or self-care (01) ==
LOC: UCCORT 13:58
DX: T63.461A Toxic effect of venom of wasps, accidental (unintentional), initial encounter (principal); R22.0 Localized swelling, mass and lump, head; Y92.9 Unspecified place or not applicable; M19.012 Primary osteoarthritis, left shoulder; I10 Essential (primary) hypertension
CPT/HCPCS: 99211; A9270-GY; G0463; J7512

== ENCOUNTER 2019-09-01 07:58 | Emergency (ER) | payer MEDICARE ==
--- OUTSIDE RECORDS SUMMARY | 2019-09-01 08:07 | XMS REPORT | Continuity of Care Document ---
:1940 External Reference #:[id number] Author Name Amilcar Cruz MD Address [address] [place] [address] [address] [place] [address] Care Team Providers Name Role Phone Marques Kendrick M.D. - Radiation Care Team Information Dyno Technician Oncology Edwin Pollock M.D. PH.D. - Care Team Information Dyno Technician [phone] Procedural Dermatology Marc Pozo MD - Internal Medicine Care Team Information Dyno Technician Problems Active Problems Provider Date Overactive bladder Amilcar Cruz MD Onset: 08/01/2019 History of malignant neoplasm of kidney Amilcar Cruz MD Onset: 2018 Bladder muscle dysfunction - overactive Amilcar Cruz MD Onset: 2016 History of malignant neoplasm of prostate Amilcar Cruz MD Onset: 01/27 Increased frequency of urination Amilcar Cruz MD Onset: 07/26/2012 Impotence of organic origin Amilcar Cruz MD Onset: 07/26/2012 Malignant tumor of kidney Bishop Valles RPA Onset: 02/02/2012 Malignant tumor of prostate Bishop Valles RPA Onset: 02/02/2012 Social History Type Date Description Comments Sex Unknown Tobacco Use Reviewed: 01/24/19 Never Smoked Cigarettes Smoking Status Reviewed: 08/01/19 Never Smoked Cigarettes ETOH Use Patient denies alcohol use Allergies, Adverse Reactions, Alerts Description No Known Drug Allergies Medications Active Medications SIG Qnty Indications Ordering Date Provider Vesicare take one tablet 90tabs Amilcar Orta 10/16/2018 10mg Tablets by mouth every MD Anthony day Prilosec 1 PO qd 90caps Unknown 20mg Capsules Polyethylene Glycol Unknown Losartan Potassium Unknown 150mg Levothyroxine Sodium Unknown 25mcg Tablets Levocetirizine Unknown Dihydrochloride 5mg Tablets Rosuvastatin Calcium Unknown 5mg Tablets Fluticasone Propionate Unknown 50mcg/Act Suspension Multi Vitamin prn Unknown Tablets Citalopram Hydrobromide Unknown 20mg Tablets Vitamin D 1 by mouth Unknown 1000Unit Tablets every day Bupropion Hydrochloride Henny De Jesus MD ER (XL) 300mg Tablets ER 24HR Montelukast Sodium Henny De Jesus MD 10mg Tablets Meloxicam Unknown 15mg Tablets Omeprazole Magnesium take 1 capsule Unknown (20 mg total) 20.6(20Base) mg Capsules by mouth daily DR Blanchard Description No Information Available Vital Signs Date Vital Result Comment 08/01/2019 1:08pm BP Systolic 139 mmHg BP Diastolic 86 mmHg Heart Rate 56 /min 01/24/2019 11:42am Height 63 inches 5'3" Weight 140.00 lb Weight 63.504 kg BMI (Body Mass Index) 24.8 kg/m2 BP Systolic 140 mmHg BP Diastolic 82 mmHg Heart Rate 73 /min Results Test Acquired Date Facility Test Result H/L Range Note Laboratory test 08/01/2019 [facility] [employer] PSA Total < pending> finding [facility] [place] [address] [phone] 230 Ua Routine 08/01/2019 [facility] Ua Glucose Negative REF TO DR ADDRESS ON ORDER FOR (626)- - Ua Protein Negative Ua Nitrite Negative Ua Leuko Negative Ua Blood Negative Ua Color Yellow Ua Ketones Negative Ua Clarity Clear Ua Specific [place] 1.015 1.003-1.030 Ua PH 7.0 5.0-7.5 Ua Bilirubin Negative Ua Urobilinogen 0.2 E.U./dL 0.0-1.0 Procedures Date Code Description Status 07/27/2017 [id number] Colonoscopy Completed Medical Devices Description No Information Available Encounters Description No Information Available Assessments Date Code Description Provider 08/01/2019 Z85.46 Personal history of malignant neoplasm of Amilcar Cruz MD prostate 08/01/2019 Z85.528 Personal history of other malignant Amilcar Cruz MD neoplasm of kidney 08/01/2019 N32.81 Overactive bladder Amilcar Cruz MD 08/01/2019 N52.9 Male erectile dysfunction, unspecified Amilcar Cruz MD Plan of Treatment 08/01/2019 - Amilcar Cruz MDZ85.46 Personal history of malignant neoplasm of prostateNew Labs:230 Ua Routine, Ordered: 08/01/19New Xrays:PET Scan W/CT Attenu Correct Anatom Loc Skull Base Mid Thigh, Ordered: Z85.528 Personal history of other malignant neoplasm of gpdralT16.81 Overactive slnnazfZ53.9 Male erectile dysfunction, unspecifiedAllFollow up:6 months PSA prior.......... also Axumin PET scan in 6 months 1 week prior to visit Functional Status Description No Information Available Mental Status Description No Information Available Referrals Description No Information Available
--- OUTSIDE RECORDS SUMMARY | 2019-09-01 08:07 | XMS REPORT | Summary of Care ---
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 Additional history exists DTaP,Tdap,and Td Vaccines 03/02/2027 03/02/2017, 10/26/2012, (4 - Td) 10/01/2012, Additional history exists Pneumococcal Vaccine: 65+ Completed 11/29/2018, 05/15/2015, Years 07/12/2007 Pneumococcal Vaccine: Aged Out 11/29/2018, 05/15/2015, No longer eligible Pediatrics (0 to 5 Years) 07/12/2007 based on patient's age and At-Risk Patients (6 to to complete this topic 64 Years) Varicella Vaccines Aged Out 01/15/2019, 11/28/2018, No longer eligible 03/11/2010 based on patient's age to complete this topic Zoster Vaccines Completed 01/15/2019, 11/28/2018, 03/11/2010 HIB Vaccines Aged Out No longer eligible based on patient's age to complete this topic Hepatitis A Vaccines Aged Out No longer eligible based on patient's age to complete this topic IPV Vaccines Aged Out No longer eligible based on patient's age to complete this topic documented as of this encounter Goals Goal Patient Goal Associated Recent Patient-Stated? Author Type Problems Progress Weight (lb) < Weight 65.8 kg (145 Yes Lofaso, 63 kg (139 lb) SABA Alegre lb) (07/08/2019 3:42 PM EDT) documented as of this encounter Results Phosphorus Level (07/08/2019 4:25 PM EDT) Phosphorus 3.7 2.5 - 4.5 mg/dL [facility] Pathology Specimen Plasma Performing Organization Address [facility] [place] Phone Number [facility] [address] [place] [address] [facility] [address] [phone] Pathology Magnesium Level (07/08/2019 4:25 PM EDT) Magnesium 2.3 1.6 - 2.4 mg/dL [facility] Pathology Specimen Plasma Performing Organization Address [facility] [place] Phone Number [facility] [address] [place] [address] [phone] [facility] [address] [place] [address] Pathology Comprehensive Metabolic Panel (07/08/2019 4:25 PM EDT) Albumin 4.2 3.5 - 5.2 g/dL [facility] Pathology Bilirubin, Total 0.2 <1.2 mg/dL [facility] Pathology Calcium 9.3 8.8 - 10.2 [facility] mg/dL [facility] Chloride 94 (L) 98 - 107 mmol/L [facility] Pathology Creatinine 1.01 0.70 - 1.20 [facility] mg/dL [facility] Glucose 95 70 - 140 mg/dL [facility] Pathology Alkaline Phosphatase 78 40 - 129 U/L [facility] Pathology Potassium 4.5 3.4 - 5.1 [facility] mmol/L [facility] Pathology Total Protein 6.7 6.4 - 8.3 g/dL [facility] Pathology Sodium 134 (L) 136 - 145 [facility] mmol/L [facility] AST/SGO 23 <40 U/L [facility] Pathology Blood Urea Nitrogen 12 8 - 23 mg/dL [facility] Pathology Osmolality, Daniel 278 275 - 300 [facility] mosm/kg [facility] BUN/Cre Ratio 12 [facility]ology Bicarbonate 28 22 - 29 mmol/L [facility] Pathology ALT/SGP 22 <41 U/L [facility]ology Anion Gap 12 8 - 15 mmol/L [facility] A/G Ratio 1.7 [facility] Pathology GFR Non 70 >60 [facility] [place] 2008 CDK-EPI mL/min/1.73m2 [facility] GFR 81 >60 [facility] 2009 CKD-EPI mL/min/1.73m2 [facility] Pathology Specimen Plasma Performing Organization Address [place] Phone Number [facility] [address] [phone] [facility] [address] [phone] Pathology CBC and Differential (07/08/2019 4:25 PM EDT) White Blood Cell 7.0 4 - 10 [facility] 10*3/uL [facility] Pathology Red Blood Cell 5.37 4.6 - 6.1 [facility] 10*6/uL [facility] Pathology Hemoglobin 16.2 13.5 - 18 [facility] g/dL [facility] Hematocrit 49.3 41 - 53 % [facility] Mean Cell Volume 91.8 80 - 96 fL [facility] Mean Cell Hemoglobin 30.1 27 - 33 pg [facility] Mean Cell Hgb Conc 32.8 32.0 - 36.0 [facility] g/dL [facility] Red Cell Dist Width 13.9 11.5 - 14.5 % [facility] Platelet Count 447 (H) 150 - 400 [facility] 10*3/uL [facility] Differential Type Automated Diff [facility] Neutrophil 63 % [facility] Lymphocyte 21 % [facility] Monocyte 14 % [facility]ology Eosinophil 1 % [facility]ology Basophil 1 % [facility]ology Abs Neutrophil 4.31 1.8 - 7.0 [facility] 10*3/uL [facility] Abs Lymphocyte 1.49 1.2 - 4.0 [facility] 10*3/uL [facility] Abs Monocyte 1.00 (H) 0 - 0.8 [facility] 10*3/uL [facility] Abs Eosinophil 0.08 0 - 0.5 [facility] 10*3/uL [facility] Abs Basophil 0.08 0 - 0.2 [facility] 10*3/uL [facility] Nucleated Red Blood 0 0 - 0 [facility] Cells /100{WBCs} [facility]ology Specimen EDTA Whole Blood Performing Organization Address City/State/Zipcode Phone Number [facility] [address] [place] [address] [phone] [facility] [address] [place] [address] Pathology documented in this encounter Visit Diagnoses Diagnosis Essential hypertension - Primary Unspecified essential hypertension Screen for colon cancer Special screening for malignant neoplasms, colon Gastroesophageal reflux disease without esophagitis Esophageal reflux documented in this encounter
[2019-09-01 08:25] VITALS: BP 127/68
--- NOTE | 2019-09-01 08:35 | UC ---
General HPI - HPI Summary HPI Summary: Patient is 79 year old gentleman , who present today to the urgent care for evaluation of creases on his nose, abdominal bloating left ear pain and congestion. 1) Patient stated that a friend of his told that the creases on his face near his nose are more pronounced this morning. He did not notice anything yesterday. This is what patient is most concerned about. There is no pain around the nose and nasal creases. 2) Increased abdominal "gas" for "more pronounced" for two weeks, total for four to six weeks; "[abdominal] discomfort ... it's there" denies increased burping unless when drinking carbonated beverages, denies increased flatus. Scheduled for endoscopy and colonoscopy in September. He reports that he notices more when he uses [place]. Some epigastric pain but he ate he has a history of GERD and took omeprazole in the morning today. Denies any blood in stool, no nausea vomiting diarrhea or constipation. Had last bowel movement today morning. Able to tolerate food well. 3) Four to six weeks of intermittent left ear pain, congestion, sore throat, and cough. Cough has been there for past 1 week which is now productive Discontinued amlodipine, ranitidine, and chlorthalidone after ICU hospitalization four to five weeks ago. Denies any discomfort with speech, any altered sensation or sensorium. He is very well aware of his surroundings History of Kohli's palsy for 20 years ago - History of Current Complaint Chief Complaint: UCGeneralIllness Stated Complaint: GAS IN ABD,SWOLLEN FACE Time Seen by Provider: 09/01/19 08:19 Hx Obtained From: Patient Pain Intensity: 3 - Allergy/Home Medications Allergies/Adverse Reactions: Allergies Allergy/AdvReac Type Severity Reaction Status Date / Time No Known Allergies Allergy Verified 09/01/19 08:17 Home Medications: Home Medications Meloxicam(NF) [Mobic(NF)] 15 mg PO DAILY 09/01/19 [History Confirmed 09/01/19] Multivitamins/Minerals TAB* [Theragran/minerals TAB*] 1 tab PO DAILY 09/01/19 [ History Confirmed 09/01/19] PMH/Surg Hx/FS Hx/Imm Hx - Additional Past Medical History Additional PMH: Past Medical History : GERD, hyperlipidemia, hypertension, thyroid illness, prostrate and kidney cancer. Overactive bladder. Allergies. History of Kohli's 2 [place] 20 years ago Past Surgical History: Lumbar surgeries, partial nephrectomy and prostate surgery Family History : non contributory Social History : No alcohol, non smoker, no drug us e. Previously Healthy: Yes - Surgical History Surgical History: Yes Surgery Procedure, Year, and Place: LUMBAR SURGERIES MULTIPLE 4061-1631, PARTIAL NEPHRECTOMY 2003, PROSTATE 2002 - Family History Known Family History: Positive: Non-Contributory - Social History Alcohol Use: None Substance Use Type: None Smoking Status (MU): Never Smoked Tobacco - Immunization History Most Recent Tetanus Shot: 2 years ago Review of Systems All Other Systems Reviewed And Are Negative: Yes Constitutional: Positive: Negative Skin: Positive: Other - Abnormality of the saking fold Eyes: Positive: Negative ENT: Positive: Sore Throat, Ear Ache - Left ear, Sinus Congestion Respiratory: Positive: Cough - Productive Cardiovascular: Positive: Negative Gastrointestinal: Positive: Negative Genitourinary: Positive: Negative Motor: Positive: Negative Neurovascular: Positive: Negative Musculoskeletal: Positive: Negative Neurological: Positive: Negative Psychological: Positive: Negative Is Patient Immunocompromised?: No Physical Exam - Summary Physical Exam Summary: Physical Exam: Const: Appears well. No signs of apparent distress present. Alert and oriented x 3. Musculo: Walks with a normal gait. Head/Face: Atraumatic, normocephalic on inspection. Eyes: EOMI and PERRLA in both eyes. Conjunctivae clear. No discharge noted ENT: Hearing normal, TM normal appearing , non bulging , non erythematous on the right side but left side could not be visualized due to the wax No tenderness to palpation on maxillary and frontal sinus. There is pharyngeal erythema with postnasal drip and minimal exudates . Uvula is midline. No cervical or submandibular lymphadenopathy noted. Respiratory: Respirations are unlabored. Lungs clear to auscultation bilaterally, no wheezing , rhonchi or rales noted . CVS: Regular rate and Rhythm, S1S2 normal , no murmurs identified. Extremities: Peripheral circulation is grossly normal. Pulses 2+ Abdomen : Soft non tender , nondistended , Bowel sounds present . No guarding , rebound tenderness or rigidity noted. Skin: No lesions or rash located on the upper extremities or on the lower extremities. Neuro: Cranial nerves II to XII intact, motor and sensory intact. DTR Intact bilaterally. Mood is normal. Affect is normal. Babinski negative Slight flattening of the nasolabial crease on the left There is slight decreased sensation on the left side of the cheek, is mild appears to be symmetric but very subtle changes on the left side. There is no arm drift noted Head crease appears symmetrically equal Upon asking to fill air in the mouth, only the right cheek bulges. He can with effort fill erythema towards the left side. GCS: 15 [place] [facility] stroke scale : Negative Triage Information Reviewed: Yes Vital Signs: Initial Vital Signs Temp 98 F 09/01/19 08:11 Pulse 63 09/01/19 08:11 Resp 16 09/01/19 08:11 BP 127/68 09/01/19 08:11 Pulse Ox 99 09/01/19 08:11 Vital Signs Reviewed: Yes Diagnostics - Radiology No standard instances Radiology Interpretation Completed By: Radiologist - CT head: 1. NO ACUTE INTRACRANIAL PATHOLOGY. 2. MILD DIFFUSE INVOLUTIONAL CHANGE WITH CHRONIC SMALL VESSEL ISCHEMIC CHANGES. 3. MILD SINUS MUCOSAL INFLAMMATORY DISEASE, WITH AN AIR -FLUID LEVEL IN THE RIGHT MAXILLARY SINUS. IN THE CORRECT CLINICAL SETTING, THIS MAY REPRESENT ACUTE SINUSITIS Chest Xray: HYPERINFLATION, CONSISTENT WITH COPD. NO ACTIVE CARDIOPULMONARY DISEASE. Course/Dx - Course Course Of Treatment: Suspect CVA Facial nerve involvement . CT head: 1. NO ACUTE INTRACRANIAL PATHOLOGY. 2. MILD DIFFUSE INVOLUTIONAL CHANGE WITH CHRONIC SMALL VESSEL ISCHEMIC CHANGES. 3. MILD SINUS MUCOSAL INFLAMMATORY DISEASE, WITH AN AIR-FLUID LEVEL IN THE RIGHT MAXILLARY SINUS. IN THE CORRECT CLINICAL SETTING, THIS MAY REPRESENT ACUTE SINUSITIS Chest Xray: HYPERINFLATION, CONSISTENT WITH COPD. NO ACTIVE CARDIOPULMONARY DISEASE. I believe that the patient may have had a CVA or currently has an intracranial pathology. I discussed this at length with him .. Risks include permanent disability, progressing weakness, syncope and . He verbalizes understanding of his potential diagnosis and risks. I strongly advised him to be transferred via ambulance to ER and further evaluation and treatment there. He refused to go to the ED via ambulance but will drive via private car .Patient signed out AMA. His son is present with him. I have prescribed Augmentin for his sinusitis. Patient needs additional testing, thus ER transfer advised and patient agrees. Report called to the ER provider (Dr. Madrigal) at [facility] , advised provider of the history, physical examination, and duration of illness and labs /imaging so far and the need for definitive management. - Differential Dx - Multi-Symptom Differential Diagnoses: CVA - Diagnoses Provider Diagnosis: Dyspepsia, Sinusitis, Upper respiratory infection, Facial palsy Discharge ED - Sign-Out/Discharge Documenting (check all that apply): Patient Departure All imaging exams completed and their final reports reviewed: No Studies - Discharge Plan Condition: Guarded Disposition: AGAINST MEDICAL ADVICE Prescriptions: Amoxicillin/Clavulanate TAB* [Augmentin TAB 875*] 875 mg PO BID 14 Days #28 tab Patient Education Materials: Ischemic Stroke (DC) Referrals: Marc Pozo MD [Primary Care Provider] - Additional Instructions: Please immediately go to the [facility] ER. I have sent antibiotic for the maxillary sinusitis to the [facility] [place] [address] - Billing Disposition and Condition Condition: GUARDED Disposition: Against Medical Advice
== END 2019-09-01 09:55 | disposition left against medical advice (07) ==
LOC: UCCORT 07:58
DX: J32.9 Chronic sinusitis, unspecified (principal); G51.0 Bell's palsy; J06.9 Acute upper respiratory infection, unspecified; R10.13 Epigastric pain; H92.02 Otalgia, left ear; I10 Essential (primary) hypertension; Z85.46 Personal history of malignant neoplasm of prostate; Z85.528 Personal history of other malignant neoplasm of kidney
CPT/HCPCS: 70450; 71046; 99212; G0463